=== PATIENT | female | born 2000 | race Caucasian/White ===

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

== ENCOUNTER 2020-03-23 19:17 | Emergency (ER) | payer SELFPAY ==
[~2020-03-23] VITALS: Ht 154.9 cm; Wt 60.8 kg
[2020-03-23 20:59] LABS: BASOPHILS % (AUTO) 1 % (0-1); EOSINOPHILS % (AUTO) 2 % (1-7); LYMPHOCYTES % (AUTO) 34 % (22-44); MEAN CORPUSCULAR HEMOGLOBIN 28.3 pg (27.0-34.8); MEAN CORPUSCULAR HGB CONC 32.9 g/dL (32.4-35.8); MEAN PLATELET VOLUME 10.3 fL (7.4-10.4); MONOCYTES % (AUTO) 6 % (2-9); NEUTROPHILS % (AUTO) 58 % (42-75); PLATELET COUNT 217 x10^3/uL (130-400); RED BLOOD COUNT 4.89 x10^6/uL (3.82-5.3); RED CELL DISTRIBUTION WIDTH 13.5 % (9.6-15.2)
[2020-03-23 21:06] LABS: ALANINE AMINOTRANSFERASE 35 U/L (12-78); ALBUMIN 4.6 g/dL (3.4-5.0); ANION GAP 5 mmol/L (5-15); CALCIUM 9.1 mg/dL (8.5-10.1); CHLORIDE 112 mmol/L (98-107); CREATININE 0.78 mg/dL (0.55-1.02)
[2020-03-23 21:10] LABS: ALKALINE PHOSPHATASE 59 U/L (45-117); BILIRUBIN,TOTAL 0.2 mg/dL (0.2-1.0); MD NO; TOTAL PROTEIN 7.9 g/dL (6.4-8.2)
[2020-03-23 22:02] LABS: MICROSCOPIC NOT IND
--- NOTE | 2020-03-23 22:08 | NUR ---
Provider at bedside
[2020-03-23] MEDS ORDERED: FLUCONAZOLE 100 MG TABLET PO ONE (23:00)
[2020-03-23 23:11] LABS: CLUE CELLS NONE SEEN (NONE SEEN); WET PREP WBCS FEW (FEW)
[2020-03-23] MEDS ORDERED: FLUCONAZOLE 100 MG TABLET ONE (23:16)
[2020-03-23 23:54] VITALS: BP 103/58
== END 2020-03-23 23:56 | disposition home or self-care (01) ==
LOC: ED 23:29
DX: B37.3 Candidiasis of vulva and vagina (principal); R10.32 Left lower quadrant pain; R10.2 Pelvic and perineal pain; R11.2 Nausea with vomiting, unspecified
CPT/HCPCS: 36415; 76830; 80053; 81003; 84703; 85025; 87210; 87491; 87591; 87808; 99284